=== PATIENT | female | born 1945 | race Caucasian/White ===

== ENCOUNTER → 2017-01-23 | Outpatient (CLI) | payer OTHER, MEDICARE | LOC: FIMAGING 10:20 | PROVIDERS: ATTEND Family Medicine | DX: Z12.31 Encounter for screening mammogram for malignant neoplasm of breast (principal); Z80.3 Family history of malignant neoplasm of breast | CPT/HCPCS: G0202 ==

== ENCOUNTER 2017-07-27 17:35 | Observation (INO) | payer OTHER, MEDICARE ==
--- NOTE | 2017-07-27 17:51 | EDPHY ---
H & P Stated Complaint: Left arm pain Time Seen by Provider: 07/27/17 17:50 HPI/ROS: CHIEF COMPLAINT: Left arm pain following mechanical fall HISTORY OF PRESENT ILLNESS: The patient presents to the ED with complaints of left arm pain following mechanical fall. The patient reports moderate pain distal to her shoulder joint. She denies associated numbness or weakness. The patient sustained a mechanical fall without antecedent palpitations, chest pain or acute neurologic symptoms. She did not strike her head or lose consciousness. She has no complaints of headache, neck pain, chest pain, abdominal pain or additional extremity injury. The patient denies any anticoagulant use. She does have a history of hypertension. The patient currently rates her pain as a 7/10. She does report associated nausea. The patient reports she drank a smoothie at 3:30pm and she ate lunch at noon. REVIEW OF SYSTEMS: A comprehensive 10 point review of systems is otherwise negative aside from elements mentioned in the history of present illness. Source: Patient Exam Limitations: No limitations - Personal History Current Tetanus Diphtheria and Acellular Pertussis (TDAP): No - Medical/Surgical History Hx Asthma: No Hx Chronic Respiratory Disease: No Hx Diabetes: No Hx Cardiac Disease: No Hx Renal Disease: No Hx Cirrhosis: No Hx Alcoholism: No Hx HIV/AIDS: No Hx Splenectomy or Spleen Trauma: No Other PMH: HTN. - Social History Smoking Status: Never smoked - Physical Exam Exam: General Appearance: Alert, mild discomfort secondary to pain Head: Atraumatic Eyes: Pupils equal, round, reactive ENT, Mouth: No hemotympanum, no oral trauma Neck: Nontender, trachea midline Respiratory: No chest wall tender, subcutaneous air, lungs clear bilaterally Cardiovascular: Regular rate and rhythm Abdomen: Abdomen is soft and nontender, pelvis stable Skin: No lacerations, No abrasion Back: No midline T/L/S pain Extremities: Tenderness to palpation and decreased range of motion noted at the left proximal humerus Neurological: GCS 15, 5/5 strength noted throughout the left upper extremity. Normal sensory function noted throughout the left upper extremity. Constitutional: Initial Vital Signs Temperature (C) 36.7 C 07/27/17 17:43 Heart Rate 83 07/27/17 17:43 Respiratory Rate 18 07/27/17 17:43 Blood Pressure 156/104 H 07/27/17 17:43 O2 Sat (%) 96 07/27/17 17:43 O2 Delivery Mode [Post Non-Rebreather Mask Procedure 1st] O2 Delivery Mode [Procedural Non-Rebreather Mask 1st] O2 Delivery Mode Room Air O2 (L/minute) [Post Procedure 15 1st] O2 (L/minute) [Procedural 1st] 15 Allergies/Adverse Reactions: No Known Allergies Allergy (Unverified 02/22/10 16:47) Home Medications: Medication Instructions Recorded Aciphex 02/22/10 Aspirin 81mg 02/22/10 BENAZEPRIL HCL 02/22/10 CALCIUM 500 + VIT D 200 TABLET 02/22/10 FISH OIL 1,000 MG SOFTGEL 02/22/10 Medical Decision Making - Diagnostics EKG Interpretation: EKG: Complete interpretation has been separately recorded in the [facility] archive. Summary impression: Sinus tachycardia, rate 105, nonspecific ST T wave changes are noted. Imaging Results: Imaging Impressions Humerus X-Ray 07/27/17 18:01 Impression: Anterior shoulder dislocation with associated left humeral fracture. Shoulder X-Ray 07/27/17 19:14 Impression: Failed reduction with persistent left humeral fracture dislocation. CT shoulder: Proximal humerus fracture dislocation impacted on glenoid. Images reviewed by myself and discussed with radiologist Dr. Lee. Procedures: Procedure: Conscious sedation. Indication: Fracture dislocation reduction of left shoulder The patient is an appropriate candidate to tolerate procedural sedation. The patient's vital signs and mental status are appropriate. The risks, benefits and alternatives of the sedation were discussed with the patient. The patient is ASA classification 2. The patient's Mallampati airway score was 2 and the patient did meet the 3-3-2 airway measurements. A time out was completed. The patient was sedated with 15 mg of ketamine, 40 mg of propofol, 50 mg of fentanyl x2. The patient was monitored with continuous pulse oximetry, case monitor and end tidal CO2. There were no complications and no significant hypoxemia. I performed both the sedation and the procedure. The total time I spent at the bedside during the procedural sedation was 17 minutes. The patient was examined after the procedural sedation and has returned to their pre -sedation baseline with normal vital signs and a normal examination. Procedure: Dislocation reduction. Indication: Fracture dislocation reduction I attempted to reduce the fracture dislocation of left shoulder with conscious sedation. I was unable to adequately reduce the fracture dislocation likely secondary to the configuration of the humerus fracture. ED Course/Re-evaluation: The patient had an IV established. She received 4 mg of IV Zofran for nausea and 50 mcg of fentanyl. X-ray demonstrates a fracture dislocation of the left shoulder. The patient was brought into the resuscitation room. She received additional IV fentanyl, ketamine and propofol for conscious sedation. I attempted several times to reduce the patient's fracture dislocation without success. The patient was placed in a shoulder immobilizer. I requested orthopedic consultation at 7:30 p.m.. I spoke with Dr. Cooper who will take the patient to the operating room this evening. Preoperative EKG demonstrates only sinus tachycardia. The patient's initial chemistry panel demonstrated hyponatremia which was felt to be a delusional error. An Istat was ordered for confirmation 8:30 p.m.. Repeat i-STAT demonstrates a normal serum potassium. Dr. Cooper has requested the patient be admitted to the hospitalist service. I discussed the case with Dr. Jj Kirk at 8:[address] Cooper did request a CT scan of the joint be performed. I reviewed the results of that study with Dr. Lee from Radiology. It demonstrates a impacted proximal humerus fracture on the glenoid. Differential Diagnosis: Differential diagnosis considered includes fracture, sprain, dislocation, neurovascular injury - Data Points Laboratory Results: Laboratory Results 07/27/17 18:00 07/27/17 18:00 07/27/17 07/27/17 18:00 18:00 WBC 6.86 10^3/uL 10^3/uL (3.80-9.50) RBC 4.06 10^6/uL L 10^6/uL (4.18-5.33) Hgb 13.2 g/dL g/dL (12.6-16.3) Hct 37.5 % L % (38.0-47.0) MCV 92.4 fL fL (81.5-99.8) MCH 32.5 pg pg (27.9-34.1) MCHC 35.2 g/dL g/dL (32.4-36.7) RDW 12.7 % % (11.5-15.2) Plt Count 204 10^3/uL 10^3/uL (150-400) MPV 9.9 fL fL (8.7-11.7) Neut % (Auto) 55.1 % % (39.3-74.2) Lymph % (Auto) 34.0 % % (15.0-45.0) [place] % (Auto) 7.6 % % (4.5-13.0) Eos % (Auto) 2.6 % % (0.6-7.6) Baso % (Auto) 0.4 % % (0.3-1.7) Nucleat RBC Rel Count 0.0 % % (0.0-0.2) Absolute Neuts (auto) 3.78 10^3/uL 10^3/uL (1.70-6.50) Absolute Lymphs (auto) 2.33 10^3/uL 10^3/uL (1.00-3.00) Absolute Monos (auto) 0.52 10^3/uL 10^3/uL (0.30-0.80) Absolute Eos (auto) 0.18 10^3/uL 10^3/uL (0.03-0.40) Absolute Basos (auto) 0.03 10^3/uL 10^3/uL (0.02-0.10) Absolute Nucleated RBC 0.00 10^3/uL 10^3/uL (0-0.01) Immature Gran % 0.3 % % (0.0-1.1) Immature Gran # 0.02 10^3/uL 10^3/uL (0.00-0.10) Sodium 112 mEq/L L* mEq/L (134-144) Potassium 3.9 mEq/L mEq/L (3.5-5.2) Chloride 102 mEq/L mEq/L (97-110) Carbon Dioxide 24 mEq/l mEq/l (22-31) Anion Gap TNP BUN 19 mg/dL mg/dL (7-23) Creatinine 0.8 mg/dL mg/dL (0.6-1.0) Estimated GFR > 60 Glucose 131 mg/dL H mg/dL (70-100) Calcium 9.1 mg/dL mg/dL (8.5-10.4) Specimen Hemolysis Medications Given: Discontinued Medications Fentanyl (Sublimaze) 50 mcg IVP EDNOW ONE Stop: 07/27/17 18:02 Last Admin: 07/27/17 18:09 Dose: 50 mcg Fentanyl (Sublimaze) 50 mcg IVP EDNOW ONE Stop: 07/27/17 18:41 Last Admin: 07/27/17 18:42 Dose: 50 mcg Fentanyl (Sublimaze) 50 mcg IVP EDNOW ONE Stop: 07/27/17 19:14 Last Admin: 07/27/17 19:13 Dose: 50 mcg Ketamine HCl (Ketamine) 15 mg IVP EDNOW ONE Stop: 07/27/17 19:10 Last Admin: 07/27/17 19:13 Dose: 15 mg Ondansetron HCl (Zofran) 4 mg IVP EDNOW ONE Stop: 07/27/17 18:02 Last Admin: 07/27/17 18:06 Dose: 4 mg Propofol (Diprivan) 40 mg IVP EDNOW ONE Stop: 07/27/17 19:17 Last Admin: 07/27/17 19:16 Dose: 40 mg Propranolol HCl (Inderal Injection) 40 mg IV ONCE ONE Stop: 07/27/17 19:17 Last Admin: 07/27/17 19:38 Dose: Not Given Departure - Departure Disposition: [facility] Acute Clinical Impression: Proximal humerus fracture Condition: Good
[2017-07-27] MEDS ORDERED: ONDANSETRON 4 MG/2 ML VIAL IVP ONE (18:01)
[2017-07-27] MEDS ORDERED: fentaNYL 100 MCG/2 ML INJ IVP ONE ×3 (18:01→19:13)
[2017-07-27] MEDS ORDERED: fentaNYL 100 MCG/2 ML INJ ONE (18:36)
[2017-07-27] MEDS ORDERED: KETAMINE 100 MG/10 ML SYR ONE (19:07)
[2017-07-27] MEDS ORDERED: KETAMINE 100 MG/10 ML SYR IVP ONE (19:09)
[2017-07-27] MEDS ORDERED: PROPRANOLOL HCL 1 MG/ML VIAL IV ONE (19:16)
[2017-07-27] MEDS ORDERED: PROPOFOL 200 MG/20 ML VIAL IVP ONE (19:16)
[2017-07-27] MEDS ORDERED: PROPOFOL 200 MG/20 ML VIAL ONE ×3 (19:17→21:55)
[2017-07-27 20:13] LABS: CALCIUM 9.1 mg/dL (8.5-10.4); CARBON DIOXIDE 24 mEq/l (22-31); CHLORIDE 102 mEq/L (97-110); CREATININE 0.8 mg/dL (0.6-1.0); GLOMERULAR FILTRATION RATE > 60; GLUCOSE 131 mg/dL (70-100); POTASSIUM 3.9 mEq/L (3.5-5.2)
[2017-07-27 20:14] LABS: % IMMATURE GRANULYOCYTES 0.3 % (0.0-1.1); ABSOLUTE IMMATURE GRANULOCYTES 0.02 10^3/uL (0.00-0.10); ADD DIFF? NO; ADD MORPH? NO; ADD SCAN? NO; ATYPICAL LYMPHOCYTE FLAG 10 (0-99); FRAGMENT RBC FLAG 0 (0-99); HEMATOCRIT 37.5 % (38.0-47.0); HEMOGLOBIN 13.2 g/dL (12.6-16.3); LEFT SHIFT FLG 0 (0-99); LIPEMIA HEMOLYSIS FLAG 90 (0-99); MEAN CELL HEMOGLOBIN 32.5 pg (27.9-34.1); MEAN CELL HEMOGLOBIN CONCENTR. 35.2 g/dL (32.4-36.7); MEAN CELL VOLUME 92.4 fL (81.5-99.8); MEAN PLATELET VOLUME 9.9 fL (8.7-11.7); PLATELET CLUMPS FLAG 10 (0-99); PLATELET COUNT 204 10^3/uL (150-400); RED BLOOD CELL COUNT 4.06 10^6/uL (4.18-5.33); RED CELL DISTRIBUTION WIDTH 12.7 % (11.5-15.2)
[2017-07-27] MEDS ORDERED: ROPIVACAINE HCL 20 MG/10 ML INJ EP ONE ×2 (20:17→20:21)
--- NOTE | 2017-07-27 20:20 | CPEKG ---
Heart Rate: 105 RR Interval: 571 P-R Interval: 176 QRSD Interval: 100 QT Interval: 348 QTC Interval: 461 P Hamilton: 52 QRS Hamilton: 0 T Wave Hamilton: -2 EKG Severity - OTHERWISE NORMAL ECG - EKG Impression: SINUS TACHYCARDIA EKG Impression: LOW VOLTAGE IN FRONTAL LEADS Electronically Signed By: Rudy Tobias 27-Jul-2017 20:50:08
[2017-07-27] MEDS ORDERED: LR 1,000 ML IV ONE (20:45)
[2017-07-27] MEDS ORDERED: MIDAZOLAM 2 MG/2 ML VIAL IVP ONE (20:51)
[2017-07-27] MEDS ORDERED: CITRIC ACID/SODIUM CITRATE 30 ML UDCUP PO ONE (20:51)
--- NOTE | 2017-07-27 20:53 | PDANEPAE ---
ANE Past Medical History - Cardiovascular History Hx Hypertension: Yes Hx Arrhythmias: No Hx Chest Pain: No Hx Coronary Artery / Peripheral Vascular Disease: No Hx CHF / Valvular Disease: No Hx Palpitations: No - Pulmonary History Hx COPD: No Hx Asthma/Reactive Airway Disease: No Hx Recent Upper Respiratory Infection: No Hx Oxygen in Use at Home: No Hx Sleep Apnea: No - Endocrine History Hx Diabetes: No Hypothyroid: No Hyperthyroid: No Obesity: yes, severe ANE Review of Systems Review of Systems: ANE Patient History - Allergies Allergies/Adverse Reactions: No Known Allergies Allergy (Unverified 02/22/10 16:47) - Home Medications Home Medications: Aciphex 02/22/10 [Last Taken Unknown] Aspirin 81mg 02/22/10 [Last Taken Unknown] BENAZEPRIL HCL 02/22/10 [Last Taken Unknown] CALCIUM 500 + VIT D 200 TABLET 02/22/10 [Last Taken Unknown] FISH OIL 1,000 MG SOFTGEL 02/22/10 [Last Taken Unknown] - NPO status NPO Since - Liquids (Date): 07/27/17 NPO Since - Liquids (Time): 15:30 NPO Since - Solids (Date): 07/27/17 NPO Since - Solids (Time): 12:00 - Smoking Hx Smoking Status: Never smoked ANE Labs/Vital Signs - Labs Result Diagrams: 07/27/17 18:00 07/27/17 18:00 - Vital Signs Blood Pressure: 142/73 Heart Rate: 104 Respiratory Rate: 18 O2 Sat (%): 94 Height: 170.18 cm Weight: 90.718 kg ANE Physical Exam - Airway Neck exam: FROM Mallampati Score: Class 2 Mouth exam: normal dental/mouth exam - Pulmonary Pulmonary: no respiratory distress - Cardiovascular Cardiovascular: regular rate and rhythym - ASA Status ASA Status: III ANE Anesthesia Plan Anesthesia Plan: general endotracheal anesthesia Regional Anesthesia: interscalene BP NB
[2017-07-27] MEDS ORDERED: MIDAZOLAM 2 MG/2 ML VIAL ONE (20:56)
[2017-07-27] MEDS ORDERED: CITRIC ACID/SODIUM CITRATE 30 ML UDCUP ONE (20:57)
[2017-07-27] MEDS ORDERED: LIDOCAINE 2% 5 ML SDV ONE (21:00)
[2017-07-27] MEDS ORDERED: ONDANSETRON 4 MG/2 ML VIAL ONE (21:01)
[2017-07-27] MEDS ORDERED: DEXAMETHASONE 4 MG/ML VIAL ONE (21:01)
[2017-07-27] MEDS ORDERED: ROCURONIUM 50 MG/5 ML VIAL ONE ×2 (21:01→21:46)
[2017-07-27] MEDS ORDERED: fentaNYL 250 MCG/5 ML INJ ONE (21:03)
[2017-07-27 21:33] LABS: SODIUM 112 mEq/L (134-144)
[2017-07-27] MEDS ORDERED: ceFAZolin 1 GM VIAL ONE (21:33)
[2017-07-27] MEDS ORDERED: SUCCINYLCHOLINE CHLORIDE*ANESTHESIA ONLY*200 MG/10 ML SYR IVP ONE (21:57)
[2017-07-27] MEDS ORDERED: oxyCODONE IR 5 MG TAB PO PRN (22:22)
[2017-07-27] MEDS ORDERED: ONDANSETRON DISINTEGRATING 4 MG TAB PO PRN (22:22)
[2017-07-27] MEDS ORDERED: ACETAMINOPHEN 325 MG TAB PO PRN (22:22)
[2017-07-27] MEDS ORDERED: ONDANSETRON 4 MG/2 ML VIAL IVP PRN (22:22)
[2017-07-27] MEDS ORDERED: SUGAMMADEX SODIUM 200 MG/2 ML VIAL IVP ONE (22:30)
[2017-07-27] MEDS ORDERED: fentaNYL 100 MCG/2 ML INJ IVP PRN (22:49)
[2017-07-27] MEDS ORDERED: NALOXONE HCL 0.4 MG/ML INJ IVP PRN (22:49)
[2017-07-27] MEDS ORDERED: PROMETHAZINE HCL 25 MG/ML INJ IVP PRN (22:49)
[2017-07-27] MEDS ORDERED: LABETALOL HCL 5 MG/ML 20 ML MDV IVP PRN (22:49)
--- NOTE | 2017-07-27 22:51 | POSTANESTH ---
Post Anesthetic Evaluation Cardiovascular Status: Similar to Pre-Op Cond Respiratory Status: Normal, Stable Level of Consciousness/Mental Status: Can Participate in Eval Pain Control: Adequate, Prn Tx Ordered Nausea/Vomiting Control: Adequate, Prn Tx Ordered Complications Possibly Related to Anesthesia: None Noted
[2017-07-27] MEDS ORDERED: OXYCODONE/APAP 5/325 TAB PO PRN (22:54)
[2017-07-27] MEDS ORDERED: D5W 1/2 NS W/ 20 KCl/L 1,000 ML IV SCH (23:00)
--- NOTE | 2017-07-27 23:35 | GCON ---
[f rep st] CONSULTATION ORTHOPEDIC EMERGENCY ROOM CONSULT DATE OF CONSULTATION: 07/27/2017 CHIEF COMPLAINT: Left shoulder pain. DIAGNOSIS: Impacted fracture dislocation, left proximal humerus, shoulder. HISTORY OF PRESENT ILLNESS: Please see details of ER History and Physical and admitting physician's History and Physical. A 72-year-old female who was at the [employer], tripped on a carpet and fe ll onto her left shoulder. Was triaged to the emergency room. Attempted closed reduction by the ER staff found a locked fracture dislocation, irreducible by closed manipulation with conscious sedation . I was consulted for evaluation of reduction of fracture, dislocation of left proximal humerus frac kati, and a possible open reduction, internal fixation. PHYSICAL EXAMINATION: GENERAL: Reveals a well-appearing female, coherent, talkative. RIGHT UPPER E XTREMITY: With movement, and no pain. ABDOMEN: Soft. BILATERAL LOWER EXTREMITIES: Hip, knee and ankle range of motion without any pain. LEFT UPPER EXTREMITY: Left shoulder had a positive sulcus s ign. It was in a sling. She had good sensation throughout her axillary, lateral and posterior shoul gerardo, axillary nerve distribution. She had mobile thumb and fingers with good wrist extension, wrist flexion. IMAGING: X-rays and CT scan showed an inferior greater tuberosity fracture, comminuted, displaced wi th a keyed, locked in, inferior glenohumeral dislocation. IMPRESSION AND RECOMMENDATION: Locked fracture dislocation of the proximal humerus with shoulder dis location. The patient will present for closed manipulation versus open reduction and internal fixation. Her fa margoth was at the bedside. All questions were answered. Risks, benefits, expectations, alternatives w ere discussed. She was consented for the above procedures. /[id number]/MODL
--- NOTE | 2017-07-28 00:26 | GOP ---
[f rep st] OPERATIVE REPORT DATE OF OPERATION: 07/27/2017 SURGEON: Radha Cooper MD PREOPERATIVE DIAGNOSIS: Locked fracture dislocation of the left proximal humerus with greater tubero sity involvement. POSTOPERATIVE DIAGNOSIS: 1. Locked fracture dislocation of the left proximal humerus with greater tuberosity involvement. 2. Rotator cuff tear. PROCEDURE PERFORMED: 1. Open reduction, internal fixation of left proximal humerus fracture. 2. Open rotator cuff repair. FINDINGS: ESTIMATED BLOOD LOSS: 150 cc. INDICATIONS: Please see details of H and P. A 72-year-old female who sustained a mechanical fall wh ile shopping. Attempted closed reduction in the emergency room that failed. Presents for operative fixation intervention. DESCRIPTION OF PROCEDURE: The patient identified in the preoperative holding area, consent, laterali ty and preoperative antibiotics were confirmed delivered. All questions were answered. Her family w as at the bedside for questions and answers. Patient brought into the operating room. Beach chair position. We attempted a closed reduction jyoti pulation with no success under anesthesia. We thus converted to the open procedure. The left upper extremity was prepped and draped in sterile fashion. Surgical time-out was performed. 2 g Ancef was identified and put into the patient. A deltopectoral interval was used. Cephalic vein was taken wi th the deltoid. The conjoined tendon was under tension. The head was anterior and inferior. With s light rotation, we identified the subscap as we identified the clavipectoral fascia, and removed this . We used self retainers and Kolbel retractors underneath the conjoined tendon and the deltoid. The fracture was basically a 3-part fracture of the greater tuberosity with a large segment rotated post eriorly by a centimeter and a half to 2 cm. We did a small subscap split, put a narrow Metcalf and redu boni the fracture. We confirmed this under fluoroscopic views. We repaired the rotator cuff with a couple of interrupted #2 FiberWire and used it to caul fat puller from posteriorly, the greater tuberosity. We chose a small proximal humeral locking plate. We placed pro visional guide pins and a 3.5 small frag screw in the sliding hole, confirmed this under internal/ext ernal rotation, abduction and had anatomic reduction. We filled in 5 proximal holes with locking scr ews, and then the shaft holes as well. The wound was copiously washed out with 500 cc of warm normal saline. We closed the wound with 2-0 PDS and then 3-0 Monocryl and then ramon. We used 20 cc of 0.2% ropivacaine and placed a Xeroform and a waterproof dressing. COMPLICATIONS: None. DISPOSITION: Extubated to the PACU in stable condition. /[id number]/MODL
[2017-07-28 00:39] VITALS: RESP 16
--- NOTE | 2017-07-28 00:54 | PDGENHP ---
History and Physical - Chief Complaint Shoulder pain - History of Present Illness 72 yo F w/ HTN presents with L shoulder injury after a fall. [place] today when she slipped on a rug and fell on her L shoulder. Upon arrival in the ED she was noted to have a shoulder dislocation and humeral fracture. As a result she was taken to the OR by ortho for an ORIF. Orthopedic service requested patient be admitted by hospitalist service. History Information - Allergies/Home Medication List Allergies/Adverse Reactions: No Known Allergies Allergy (Unverified 02/22/10 16:47) Home Medications: Aspirin EC [Aspirin EC 81 mg (*)] 81 mg PO HS 07/27/17 [Last Taken 07/26/17] Benazepril HCl [Lotensin (*)] 20 mg PO DAILY 07/27/17 [Last Taken 07/26/17] Calcium Carbonate/Vitamin D3 [Calcium 500 + Vit D Cap[place]] 1 each PO DAILY [Last Taken 07/27/17] Docusate Sodium [Colace 100 MG (*)] 100 mg PO DAILY 07/27/17 [Last Taken Unknown ] Fluticasone Nasal [Flonase Nasal [place] (RX)] 1 sprays NASAL HS 07/27/17 [Last Taken 07/26/17] Herbals/Supplements -Info Only 1 ea PO DAILY 07/27/17 [Last Taken Unknown] Ranitidine HCl [Zantac] 150 mg PO DAILY 07/27/17 [Last Taken 07/27/17] I have personally reviewed and updated: family history, medical history - Past Medical History hypertension - Family History Positive for: CAD - Social History Smoking Status: Never smoked Review of Systems Review of Systems: ROS: 10pt was reviewed & negative except for what was stated in HPI & below Physical Exam Physical Exam: Temp Pulse Resp BP Pulse Ox 36.9 C 103 H 16 154/82 H 95 07/28/17 00:00 07/28/17 00:00 07/28/17 00:00 07/28/17 00:00 07/28/17 00:00 O2 (L/minute) 2 Constitutional: appears nourished, uncomfortable Eyes: PERRL, EOMI Ears, Nose, Mouth, Throat: moist mucous membranes, no oral mucosal ulcers Cardiovascular: regular rate and rhythym, no murmur, rub, or gallop Respiratory: no respiratory distress, clear to auscultation Gastrointestinal: normoactive bowel sounds, soft, non-tender abdomen Skin: warm, normal color Musculoskeletal: other (L arm in sling post-operatively) Neurologic: AAOx3, CN II-XII Intact Psychiatric: interacting appropriately, not anxious Lab Data & Imaging Review 07/27/17 18:00 07/27/17 18:00 WBC 6.86 10^3/uL (3.80-9.50) 07/27/17 18:00 RBC 4.06 10^6/uL (4.18-5.33) L 07/27/17 18:00 Hgb 13.2 g/dL (12.6-16.3) 07/27/17 18:00 POC Hgb 11.6 gm/dL (12.6-16.3) L 07/27/17 20:23 Hct 37.5 % (38.0-47.0) L 07/27/17 18:00 POC Hct 34 % (38-47) L 07/27/17 20:23 MCV 92.4 fL (81.5-99.8) 07/27/17 18:00 MCH 32.5 pg (27.9-34.1) 07/27/17 18:00 MCHC 35.2 g/dL (32.4-36.7) 07/27/17 18:00 RDW 12.7 % (11.5-15.2) 07/27/17 18:00 Plt Count 204 10^3/uL (150-400) 07/27/17 18:00 MPV 9.9 fL (8.7-11.7) 07/27/17 18:00 Neut % (Auto) 55.1 % (39.3-74.2) 07/27/17 18:00 Lymph % (Auto) 34.0 % (15.0-45.0) 07/27/17 18:00 [place] % (Auto) 7.6 % (4.5-13.0) 07/27/17 18:00 Eos % (Auto) 2.6 % (0.6-7.6) 07/27/17 18:00 Baso % (Auto) 0.4 % (0.3-1.7) 07/27/17 18:00 Nucleat RBC Rel Count 0.0 % (0.0-0.2) 07/27/17 18:00 Absolute Neuts (auto) 3.78 10^3/uL (1.70-6.50) 07/27/17 18:00 Absolute Lymphs (auto) 2.33 10^3/uL (1.00-3.00) 07/27/17 18:00 Absolute Monos (auto) 0.52 10^3/uL (0.30-0.80) 07/27/17 18:00 Absolute Eos (auto) 0.18 10^3/uL (0.03-0.40) 07/27/17 18:00 Absolute Basos (auto) 0.03 10^3/uL (0.02-0.10) 07/27/17 18:00 Absolute Nucleated RBC 0.00 10^3/uL (0-0.01) 07/27/17 18:00 Immature Gran % 0.3 % (0.0-1.1) 07/27/17 18:00 Immature Gran # 0.02 10^3/uL (0.00-0.10) 07/27/17 18:00 POC Sodium 138 mEq/L (134-144) 07/27/17 20:23 Sodium 112 mEq/L (134-144) L* 07/27/17 18:00 POC Potassium 4.0 mEq/L (3.3-5.0) 07/27/17 20:23 Potassium 3.9 mEq/L (3.5-5.2) 07/27/17 18:00 POC Chloride 104 mEq/L (97-110) 07/27/17 20:23 Chloride 102 mEq/L (97-110) 07/27/17 18:00 Carbon Dioxide 24 mEq/l (22-31) 07/27/17 18:00 Anion Gap TNP 07/27/17 18:00 POC BUN 16 mg/dL (7-23) 07/27/17 20:23 BUN 19 mg/dL (7-23) 07/27/17 18:00 Creatinine 0.8 mg/dL (0.6-1.0) 07/27/17 18:00 POC Creatinine 0.7 mg/dL (0.6-1.0) 11/24/17 20:23 Estimated GFR > 60 07/27/17 18:00 Glucose 131 mg/dL (70-100) H 07/27/17 18:00 POC Glucose 112 mg/dL (70-100) H 07/27/17 20:23 Calcium 9.1 mg/dL (8.5-10.4) 07/27/17 18:00 Specimen Hemolysis 07/27/17 18:00 Imaging Review: XR and CT showing fracture and dislocation of L humerus. Assessment & Plan Assessment: 72 yo F w/ HTN presents with proximal humerus fracture, now s/p ORIF. Plan: 1. L proximal humerus fracture and dislocation - As a result of mechanical fall , now s/p ORIF. - Defer management to orthopedic service, appreciate assistance - Oxycodone and morphine PRN for pain control 2. HTN - On benazepril with good control as an outpatient. Diet - Regular Code - Full Ppx - SCDs Dispo - Admit to observation status
[2017-07-28] MEDS: KETOROLAC 15 MG/1 ML SDV IVP SCH ×3 (01:34→12:11)
[2017-07-28 05:06] LABS: % IMMATURE GRANULYOCYTES 0.4 % (0.0-1.1); ABSOLUTE IMMATURE GRANULOCYTES 0.04 10^3/uL (0.00-0.10); ADD DIFF? NO; ADD MORPH? NO; ADD SCAN? NO; ATYPICAL LYMPHOCYTE FLAG 0 (0-99); FRAGMENT RBC FLAG 0 (0-99); HEMATOCRIT 31.1 % (38.0-47.0); HEMOGLOBIN 11.2 g/dL (12.6-16.3); LEFT SHIFT FLG 0 (0-99); LIPEMIA HEMOLYSIS FLAG 90 (0-99); MEAN CELL HEMOGLOBIN 32.7 pg (27.9-34.1); MEAN CELL VOLUME 90.7 fL (81.5-99.8); MEAN PLATELET VOLUME 9.7 fL (8.7-11.7); PLATELET CLUMPS FLAG 0 (0-99); PLATELET COUNT 166 10^3/uL (150-400); RED BLOOD CELL COUNT 3.43 10^6/uL (4.18-5.33); RED CELL DISTRIBUTION WIDTH 12.5 % (11.5-15.2)
[2017-07-28 05:16] LABS: ANION GAP 8 mEq/L (8-16); CALCIUM 8.3 mg/dL (8.5-10.4); CARBON DIOXIDE 22 mEq/l (22-31); CHLORIDE 106 mEq/L (97-110); CREATININE 0.6 mg/dL (0.6-1.0); GLOMERULAR FILTRATION RATE > 60; GLUCOSE 127 mg/dL (70-100); POTASSIUM 4.3 mEq/L (3.5-5.2); SODIUM 136 mEq/L (134-144)
[2017-07-28] MEDS: ceFAZolin 2 GM/DEXTROSE 100 ML IV SCH ×2 (05:29→12:11)
[2017-07-28 07:54] VITALS: TEMP 99.1; O2SAT 93
[2017-07-28] MEDS: HYDROCODONE/APAP 5/325 TAB PO PRN ×2 (08:58→12:10)
[2017-07-28] MEDS ORDERED: NON-FORMULARY NEW DRUG (Ranitidine Hcl [Zantac] 150 MG) PO SCH (09:00)
[2017-07-28] MEDS ORDERED: ENOXAPARIN 40 MG/0.4 ML SYR SC SCH (09:00)
[2017-07-28] MEDS ORDERED: FAMOTIDINE 20 MG TAB PO SCH (09:00)
[2017-07-28] MEDS ORDERED: BENAZEPRIL HCL 20 MG TAB PO SCH (09:00)
[2017-07-28 11:51] VITALS: BP 123/67; PULSE 95
--- NOTE | 2017-07-28 14:28 | GDS ---
[f rep st] DISCHARGE SUMMARY DISCHARGE DIAGNOSES: Left proximal humerus fracture. CONSULTATIONS: Dr. Cooper of Orthopedics. STUDIES AND PROCEDURES DONE: 1. Open reduction and internal fixation of the left proximal humerus fracture. 2. Open rotator cuff repair. 3. Humerus x-ray. 4. Shoulder x-ray. 5. CTA of the shoulder. PHYSICAL EXAM: GENERAL: The patient is alert. VITAL SIGNS: Afebrile at 37.3, pulse is 95, respira tory rate 16, blood pressure is 123/67, she is saturating 93% on room air. I have seen and evaluated the patient on the day of discharge. HOSPITAL COURSE: The patient is a 72-year-old female who presented in the emergency room after suffe ring a mechanical fall with complaints of shoulder pain. She was evaluated and diagnosed with: 1. Left proximal humerus fracture and dislocation. During this hospitalization, Dr. Cooper of Orthope dics was consulted. The patient was taken to the operating room, and open reduction and internal fix ation was performed on the patient's left shoulder. She has tolerated this well. Her pain is contro lled with oral pain medication, and she will follow up with Dr. Cooper in the outpatient setting. 2. History of hypertension. Her home medications have been continued. 3. Tachycardia during this hospitalization. EKG was performed, noting sinus tachycardia. This has resolved prior to disposition, with no further workup warranted. DISCHARGE MEDICATIONS: Patient has been provided prescriptions for [place]g, as well as Zofran. I have discussed the patient's disposition with Dr. Cooper. He is in agreement with this plan. FOLLOWUP: Followup will be with Dr. Cooper as well as her primary care physician, Dr. Libby Brown . /[id number]/MODL
--- NOTE | 2017-07-28 14:50 | ASMTCMCOM ---
CM Note CM Note Notes: Pt to DC today with no needs. Date Signed: 07/28/2017 02:50 PM Electronically Signed By:Hailey Lassiter LCSW
== END 2017-07-28 15:46 | disposition home or self-care (01) ==
LOC: F3N 23:24
PROVIDERS: ADMIT Internal Medicine; ATTEND Hospitalist
DX: S42.252A Displaced fracture of greater tuberosity of left humerus, initial encounter for closed fracture (principal); S46.012A Strain of muscle(s) and tendon(s) of the rotator cuff of left shoulder, initial encounter; W01.0XXA Fall on same level from slipping, tripping and stumbling without subsequent striking against object, initial encounter; Y92.513 Shop (commercial) as the place of occurrence of the external cause; Y93.89 Activity, other specified; I10 Essential (primary) hypertension; R00.0 Tachycardia, unspecified
CPT/HCPCS: 23410; 23625; 23630; 73020; 73060; 73200; 76001; 93005; 97161; 97165; 97535; C1713; C1769; G0378; G8978; G8979; G8980; G8987; G8988; G8989; J0330; J0690; J1100; J1650; J1800; J1885; J2250; J2405; J2704; J2795; J3010; 82947-QW; 96374

== ENCOUNTER → 2018-01-29 | Outpatient (CLI) | payer OTHER, MEDICARE | LOC: FIMAGING 08:55 | PROVIDERS: ATTEND Family Medicine | DX: Z12.31 Encounter for screening mammogram for malignant neoplasm of breast (principal); Z80.3 Family history of malignant neoplasm of breast ==

== ENCOUNTER → 2019-02-04 | Outpatient (CLI) | payer OTHER, MEDICARE | LOC: FIMAGING 09:38 ==